=== PATIENT | male | born 1955 | race Caucasian/White ===

== ENCOUNTER 2018-11-17 08:47 | Day surgery (SDC) | payer OTHER ==
[~2018-11-17] VITALS: Ht 181.6 cm; Wt 84.8 kg
[2018-11-17] VITALS (9 sets, daily range): BP systolic 113–127; BP diastolic 66–80
--- NOTE | 2018-11-17 07:18 | Pre-Procedure Note/Attestation ---
Pre-Procedure Note/Attestation Complete Prior to Procedure Planned Procedure: right Procedure Narrative: shoulder diagostic arthroscopy, sad Indications for Procedure Pre-Operative Diagnosis: right shoulder internal deragement Attestation I attest that I discussed the nature of the procedure; its benefits; risks and complications; and alternatives (and the risks and benefits of such alternatives ), prior to the procedure, with the patient (or the patient's legal service support representative). I attest that, if there was a reasonable possibility of needing a blood transfusion, the patient (or the patient's legal service support representative) was given the [facility] standardized written summary, pursuant to the [place] Blood Safety Act ([place] Health and Safety Code # 1645, as amended). I attest that I re-evaluated the patient just prior to the surgery and that there has been no change in the patient's H&P, except as documented below: Shlomo Bello MD Nov 17, 2018 07:18
--- NOTE | 2018-11-17 07:19 | Operative Note - PDOC ---
Operative Note Operative Note Pre-op Diagnosis: right shoulder internal deragement Procedure: see op report Post-op Diagnosis: same as pre-op plus Operative Findings: consistent w/pre-op dx studies Specimen: none Complications: none Condition: stable Estimated Blood Loss: none Implant(s) used?: Shlomo Swain MD Nov 17, 2018 07:19
[~2018-11-17 08:47] MED LIST: D5 1/2NS 1,000 ML IV SCH; HYDROcodone/Acetamin 5/325 tab ORAL PRN; HYDROmorphone 1mg/ml Carpuject SUBQ PRN; Tylenol #3 tab (300mg/30mg) ORAL PRN; ceFAZolin 1gm IVPB IVPB ONE; celeBREX 200mg Cap **SURGERY PATIENTS ONLY ORAL ONE
[2018-11-17] MEDS ORDERED: METFORMIN HCL1000 M1 ORAL (09:15)
[2018-11-17] MEDS ORDERED: prandin PO (09:15)
[2018-11-17] MEDS ORDERED: MULTIVITAMINS1 EAC2 ORAL (09:17)
[2018-11-17] MEDS ORDERED: ALLERGY MEDICAT25 MG PO (09:17)
--- NOTE | 2018-11-17 09:29 | History & Physical ---
History and Physical History & Physicial 63 year old male presents for right shoulder arthroscopy patient denies any significant medical issues no cp, sob, palpitations, no history of MS, or heart disease PMH diabetes deviated septum PSH ankle arthroscopy SOCIAL HX non recent smoking or drinking history fully independent MEDS/ALLERGIES reviewed ROS: all 10 points reviewed and negative LABS reviewed ECG pending CXR pending PHYSICAL 113/78 85 98.2 14 WDWN NAD clear breath sounds bilaterally without rhonchi or wheeze [id number] without MRG NABS nontender no HSM no CCE nonfocal IMPRESSION right shoulder pain for right shoulder arthroscopy diabetes prior ankle surgery PLAN patient appears medically stable monitor blood sugars will follow up post operatively as needed NPO IV hydration impression, plan, and exam edited and reviewed in detail care discussed with Lucius Little MD Nov 17, 2018 09:29
[2018-11-17] MEDS ORDERED: Propofol 200mg/20ml IV ONE (09:47)
[2018-11-17] MEDS ORDERED: fentaNYL 100 mcg/2 mL IV ONE (09:47)
[2018-11-17] MEDS ORDERED: Lidocaine 1% MPF 10mg/ml 5ml ONE (09:47)
[2018-11-17] MEDS ORDERED: Midazolam 2mg/2ml Inj ONE (09:48)
[2018-11-17] MEDS ORDERED: Ketorolac 30mg Inj ONE ×2 (09:51→10:48)
[2018-11-17] MEDS ORDERED: Kenalog-40 1ml Vial ONE (09:51)
[2018-11-17] MEDS ORDERED: EPINEPHrine 1mg/1ml Amp ONE (09:51)
[2018-11-17] MEDS ORDERED: celeBREX 200mg Cap **SURGERY PATIENTS ONLY ORAL ONE (09:56)
--- NOTE | 2018-11-17 09:59 | Anethesia Preoperative Eval ---
Anesthesia Pre-op PMH/ROS General Date of Evaluation: Nov 17, 2018 Anesthesiologist: Chung ASA Score: ASA 2 Mallampati Score Class I : Soft palate, uvula, fauces, pillars visible Class II: Soft palate, uvula, fauces visible Class III: Soft palate, base of uvula visible Class IV: Only hard plate visible Mallampati Classification: Class II Surgeon: Ace Diagnosis: Right shoulder internal derangement Surgical Procedure: Right shoulder arthroscopy Anesthesia History: none Family History: no anesthesia problems Allergies: Coded Allergies: CODEINE (Verified Allergy, Severe, vomiting, 11/17/18) Medications: see eMAR Patient NPO?: Yes NPO Date: Nov 16, 2018 NPO Time: 22:00 Past Medical History Cardiovascular: Denies: HTN, CAD, [place], valve dz, arrhythmia, other Pulmonary: Denies: asthma, COPD, KERRI, other Gastrointestinal/Genitourinary: Reports: GERD; Denies: CRI, ESRD, other Neurologic/Psychiatric: Denies: dementia, CVA, depression/anxiety, TIA, other Endocrine: Reports: DM; Denies: hypothyroidism, steroids, other HEENT: Denies: cataract (L), cataract (R), glaucoma, [place] (L), [place] (R), other Hematology/Immune: Denies: anemia, DVT, bleeding disorder, other Musculoskeletal/Integumentary: Denies: OA, RA, DJD, DDD, edema, other PSxH Narrative: sseptoplasty, TURBS, right ankle sx Anesthesia Pre-op Phys. Exam Physician Exam Last Vital Signs Date Time Temp Pulse Resp B/P (MAP) Pulse Ox O2 Delivery O2 Flow Rate FiO2 11/17/18 09:18 98.0 85 18 113/78 99 Room Air Constitutional: NAD Cardiovascular: RRR Respiratory: CTA Airway Exam Mallampati Score: Class II MO: full ROM: full Teeth: intact Anesthesia Pre-op A/P Labs see chart Studies Pre-op Studies: EKG - sr Risk Assessment & Plan Assessment: ASA II Plan: GA with right interscalene nerve bloock Status Change Before Surgery: No Pre-Antibiotics Drug: Ancef 2g Given Within 1 Hr of Incision: Yes Sara Burton MD Nov 17, 2018 09:59
[2018-11-17] MEDS ORDERED: LR 1000ml ONE (10:00)
[2018-11-17] MEDS ORDERED: NS Irrig 4000ml IRRIG ONE (10:00)
[2018-11-17] MEDS ORDERED: LR 1000ml 1,000 ML IVLG SCH (10:02)
[2018-11-17] MEDS ORDERED: Midazolam 2mg/2ml Inj IVP PRN ×2 (10:15→10:30)
[2018-11-17] MEDS ORDERED: Metoclopramide 10mg/2ml Inj IVP PRN ×3 (10:15→10:30)
[2018-11-17] MEDS ORDERED: fentaNYL 100 mcg/2 mL IV PRN (10:15)
[2018-11-17] MEDS ORDERED: LORazepam Inj 2mg/ml 1ml IV PRN (10:15)
[2018-11-17] MEDS ORDERED: Hydromorphone 0.5mg/0.5ml inj IVP PRN (10:15)
[2018-11-17] MEDS ORDERED: Ketorolac 30mg Inj IV PRN (10:15)
[2018-11-17] MEDS ORDERED: DiphenhydrAMINE 50mg/ml Inj IVP PRN (10:15)
[2018-11-17] MEDS ORDERED: Dexamethasone 4mg/ml vial ONE (10:48)
[2018-11-17] MEDS ORDERED: Duramorph PF 5mg/10ml amp ONE (11:05)
--- NOTE | 2018-11-17 11:40 | Immediate Post-Op Evaluation ---
Immediate Post-Op Evalulation Immediate Post-Op Evalulation Procedure: right shoulder arthroscopy Date of Evaluation: Nov 17, 2018 Time of Evaluation: 11:42 IV Fluids: 700 Blood Products: 0 Estimated Blood Loss: min Urinary Output: 0 Blood Pressure Systolic: 127 Blood Pressure Diastolic: 80 Pulse Rate: 88 Respiratory Rate: 16 O2 Sat by Pulse Oximetry: 100 Temperature (Fahrenheit): 97.2 Pain Score (1-10): 0 Nausea: No Vomiting: No Complications 0 Patient Status: awake, reacts, patent, none Hydration Status: adequate Drug: Ancef 2g Given Within 1 Hr of Incision: Yes Sara Burton MD Nov 17, 2018 11:40
--- NOTE | 2018-11-17 11:41 | 48 Hour Post Anesthesia Eval ---
Post Anesthesia Evaluation Procedure: right shoulder arthroscopy Date of Evaluation: Nov 17, 2018 Airway: patent Nausea: No Vomiting: No Hydration Status: adequate Cardiopulmonary Status: at baseline Mental Status/LOC: patient returned to baseline Post-Anesthesia Complications: 0 Follow-up care needed: ready to discharge Sara Burton MD Nov 17, 2018 11:41
--- NOTE | 2018-11-17 12:34 | Diagnostic Imaging Report ---
Indication: Cough Technique: One view of the chest Comparison: none Findings: Lungs and pleural spaces are clear. Heart size is normal. Impression: No acute process
--- NOTE | 2018-11-17 16:45 | Operative Note - Dictated ---
DATE OF OPERATION: 11/17/2018 PREOPERATIVE DIAGNOSES: 1. Right shoulder rotator cuff tendinosis. 2. Right shoulder impingement syndrome. 3. Right shoulder labral tear. POSTOPERATIVE DIAGNOSES: 1. Right shoulder superior labral tear. 2. Right shoulder bursitis/impingement syndrome. PROCEDURE: 1. Right shoulder arthroscopy and intraarticular debridement. 2. Right shoulder subacromial decompression bursectomy. SURGEON: Shlomo Bello M.D. ANESTHESIA: Interscalene general. INDICATION FOR PROCEDURE: The patient is a pleasant gentleman, who has had right shoulder pain. He had an MRI, which showed some issues with the rotator cuff as well as labrum. There was clinical evidence of impingement syndrome. The patient failed conservative treatment, elected to undergo right shoulder diagnostic arthroscopy and possible intraarticular debridement with concurrence of subacromial decompression bursectomy. Risks, limitations, expectations, and complications of the procedure were discussed in detail. All questions were addressed. DESCRIPTION OF PROCEDURE: After informed consent was obtained, the patient was brought to the operating room. The patient was placed under interscalene general anesthesia. The patient then carefully placed in the beach chair position. Right shoulder was prepped and draped in a sterile manner. Time-out was performed. Inferolateral stab incision was then made. Trocar was introduced into the glenohumeral joint. There was some fraying along the anterior labrum extending to the superior labrum. The subscapularis was intact. No significant chondral damage. The undersurface articular side of the rotator cuff was intact. No intraarticular loose bodies. A shaver was then placed in the rotator interval and the area of the anterior labral tear extending superiorly along the superior glenoid was debrided. Once this was done, it was probed, noted to be intact, and therefore formal repair was not required. Once this was completed, the camera was placed in the subacromial space. There was hypertrophic and thickened bursal tissue. The undersurface of the acromion was identified. Acromioplasty was started from lateral to medial and completed from posterior to anterior. Once this was done, the posterior bursal tissue and adhesions were removed. Once this was completed, the bursal side of the rotator cuff was evaluated and noted to be intact. Instruments removed. Portal sites were closed with 3-0 Monocryl sutures. The patient was awoken and taken to recovery room with stable vital signs. ESTIMATED BLOOD LOSS: None. COMPLICATIONS: None. SPECIMENS: None. IMPLANTS: None. Shlomo Bello M.D. DR: DEEPTHI JOB#: [id number] CC:
== END 2018-11-17 13:00 | disposition home or self-care (01) ==
LOC: SUR 08:47
DX: S43.401A Unspecified sprain of right shoulder joint, initial encounter (principal); M75.41 Impingement syndrome of right shoulder; E11.9 Type 2 diabetes mellitus without complications; K21.9 Gastro-esophageal reflux disease without esophagitis; Z88.6 Allergy status to analgesic agent; X58.XXXA Exposure to other specified factors, initial encounter; Y92.9 Unspecified place or not applicable
CPT/HCPCS: 29822; 71045; 82962; J0171; J0690; J1100; J1885; J2250; J2405; J2704; J3010; J3301; 94003; 94150